=== PATIENT | female | born 1970 | race African-American/Black ===

== ENCOUNTER 2019-02-12 06:33 | Emergency (ER) | payer SELFPAY, BC | END 2019-02-12 10:30 | disposition home or self-care (01) | LOC: JER 06:33 ==

== ENCOUNTER 2020-04-24 13:26 | Emergency (ER) | payer SELFPAY ==
[2020-04-24 13:42] VITALS: BP 139/95; PULSE 97; TEMP 98.5; BMI 27.3
--- NOTE | 2020-04-24 14:40 | PDOC ---
History of Present Illness - General Chief Complaint: Palpitations Stated Complaint: PALPITATIONS Time Seen by Provider: 04/24/20 13:58 History Source: Patient Exam Limitations: No Limitations - History of Present Illness Initial Comments: 04/24/20 14:35 49-year-old female history of hypothyroid, uterine fibroids status post myomectomy 2012, renal stones, hypertension for which she does not take any medication given she rather take "home remedies ". Patient presents today co mplaining of intermittent palpitations x 7 days. Endorses abdominal distention since October 2019 with intermittent vaginal spotting, decreased appetite and minimal bilateral lower extremity swelling. LMP November 2018, denies history of . Was sexually active approximately 6 months ago. Denies chest pain, shortness of breath, back pain, nausea, vomiting, diarrhea, changes in stool color, recent travel, known sick contact or any other complaints. Patient was last seen at this ED on January 2019 for vaginal bleeding. At that time no acute ovarian pathology was found on ultrasound and patient was advised to follow-up with [facility] and a primary care doctor for elevated blood pressure. Due to lack of health insurance she has been unable to follow-up. However states as of next week she will have health insurance. Denies tobacco use, alcohol use or any other illicit substance abuse. ROS: as above PE: GENERAL: NAD, speaking full sentences HEAD: NCAT EYES: Pupils equal, round and reactive to light, sclera anicteric, conjunctiva clear ENT: pharynx: no erythema, no exudate, uvula midline NECK: supple, no lymphadenopathy CHEST: nontender RESP: clear, no w/r/r CARDIO: rrr, no m/g/r ABD: +BS, soft, nontender, mild distention noted BACK: no midline spinal ttp, no CVAT EXTREMITIES: Normal range of motion, no pitting edema, no calf tenderness to palpation NEUROLOGICAL: Normal speech, normal gait SKIN: Warm, Dry 04/24/20 14:40 Is this a multiple visit Asthma Patient?: No Past History - Medical History Allergies/Adverse Reactions: Allergies Allergy/AdvReac Type Severity Reaction Status Date / Time gluten Allergy Mild cramps Verified 04/24/20 13:42 Home Medications: Ambulatory Orders Iodine 25 gm PO ASDIR 02/12/19 Anemia: No Asthma: No Cancer: No Cardiac Disorders: Yes (heart murmur) CVA: No COPD: No CHF: No Dementia: No Diabetes: No GI Disorders: No Disorders: No HTN: No Hypercholesterolemia: No Liver Disease: No Seizures: No Thyroid Disease: Yes (hypothyroidism no meds) - Reproductive History Is Patient Now?: No Para: 0 Spontaneous : 0 - Psycho-Social/Smoking History Smoking History: Never smoked Have you smoked in the past 12 months: No Information on smoking cessation initiated: No - Substance Abuse Hx (Audit-C & DAST Scrn) How often the patient has a drink containing alcohol: Never Score: In Men: 4 or > Positive; In Women: 3 or > Positive: 0 Screen Result (Pos requires Nsg. Audit-10AR): Negative In the last yr the pt used illegal drug/Rx for NonMed reason: No Score: Yes response is considered Positive: 0 Screen Result (Positive result requires Nsg. DAST-10): Negative *Physical Exam - Vital Signs Last Vital Signs Temp Pulse Resp BP Pulse Ox 98.5 F 97 H 17 139/95 100 04/24/20 13:26 04/24/20 13:26 04/24/20 13:26 04/24/20 13:26 04/24/20 13:26 ED Treatment Course - LABORATORY CBC & Chemistry Diagram: 04/24/20 14:50 04/24/20 14:50 - RADIOLOGY Radiology Studies Ordered: Category Date Time Status ABDOMEN & PELVIS CT WITH CONTR [CT] Stat CT Scan 04/24/20 14:23 Ordered CHEST PA & LAT [RAD] Stat Radiology 04/24/20 14:22 Ordered Medical Decision Making - Medical Decision Making 04/24/20 14:42 49-year-old female history of hypothyroid, uterine fibroids status post myomectomy 2012, renal stones, hypertension for which she does not take any medication given she rather take "home remedies ". Patient presents today complaining of intermittent palpitations x 7 days. Endorses abdominal disten tion since October 2019 with intermittent vaginal spotting, decreased appetite and minimal bilateral lower extremity swelling. LMP November 2018, denies history of . Was sexually active approximately 6 months ago. Denies chest pain, shortness of breath, back pain, nausea, vomiting, diarrhea, changes in stool color, recent travel, known sick contact or any other complaints. Patient was last seen at this ED on January 2019 for vaginal bleeding. At that time no acute ovarian pathology was found on ultrasound and patient was advised to follow-up with [facility] and a primary care doctor for elevated blood pressure. Due to lack of health insurance she has been unable to follow-up. However states as of next week she will have health insurance. Denies tobacco use, alcohol use or any other illicit substance abuse. Labs including TSH and cardiac profile UA, urine culture Chest x-ray, EKG CTAP w/con Reassess 04/24/20 18:05 Reviewed labs including TSH, cardiac profile and UA test negative Chest x-ray unremarkable on my wet read CTAP w/con: Multiple uterine fibroids and bilateral ovarian cysts, no acute pathology Copy of CT results given to patient Advised patient to follow-up with PMD and E[facility] SUPER[facility] next week Discharge - Discharge Information Problems reviewed: Yes Clinical Impression/Diagnosis: Palpitations Condition: Stable Disposition: HOME - Admission No - Follow up/Referral Referrals: [facility] [Provider Group] - Patient Discharge Instructions - Post Discharge Activity
[2020-04-24 15:22] LABS: BASO % 0.6 % (0-2.0); HEMATOCRIT 40.8 % (32.4-45.2); HEMOGLOBIN 13.2 GM/dL (10.7-15.3); LYMPH % 17.2 % (8-40); MCH 28.7 pg (25.7-33.7); MCHC 32.3 g/dl (32.0-36.0); MEAN CELL VOLUME 88.8 fl (80-96); MEAN PLT VOLUME 9.3 fl (7.5-11.1); MONO % 6.2 % (3.8-10.2); PLATELET COUNT 254 K/MM3 (134-434); RDW 17.2 % (11.6-15.6); WHITE BLOOD COUNT 8.9 K/mm3 (4.0-10.0)
[2020-04-24 15:28] LABS: EPI CELLS 13 /uL (0-25.1); HYALINE CASTS 1 /uL (0-3.1); URINE APPEARANCE CLEAR; URINE BACTERIA 99 /uL (0-1359); URINE BILIRUBIN NEGATIVE (NEGATIVE); URINE COLOR YELLOW; URINE GLUCOSE (UA) NEGATIVE (NEGATIVE); URINE KETONE 3+ (NEGATIVE); URINE LEUK ESTERASE NEGATIVE (NEGATIVE); URINE NITRITE NEGATIVE (NEGATIVE); URINE PROTEIN TRACE (NEGATIVE); URINE RBC 3096 /uL (0-23.9); URINE WBC 11 /uL (0-25.8)
[2020-04-24 15:29] LABS: HCG,QUALITATIVE URINE Negative
[2020-04-24 15:32] LABS: ACTIVATED PTT 31.5 SECONDS (25.2-36.5)
[2020-04-24 15:34] LABS: INR 1.06 (0.83-1.09); PROTHROMBIN TIME (PATIENT) 12.5 SEC (9.7-13.0)
[2020-04-24 16:01] LABS: ALBUMIN 4.1 g/dl (3.4-5.0); ALK PHOS 53 U/L (45-117); ANION GAP 10 MMOL/L (8-16); BILIRUBIN,TOTAL 0.5 mg/dL (0.2-1); CALCIUM 9.8 mg/dL (8.5-10.1); CHLORIDE 104 mmol/L (98-107); CO2 25 mmol/L (21-32); GLUCOSE,RANDOM 77 mg/dL (74-106); LIPASE 200 U/L (73-393); POTASSIUM 3.7 mmol/L (3.5-5.1); SGOT/AST 20 U/L (15-37); SGPT/ALT 26 U/L (13-61); SODIUM 139 mmol/L (136-145); TOT PROT 7.7 g/dl (6.4-8.2)
--- NOTE | 2020-04-25 13:09 | EKG ---
Test Reason : Blood Pressure : / mmHG Vent. Rate : 100 BPM Atrial Rate : 100 BPM P-R Int : 140 ms QRS Dur : 070 ms QT Int : 346 ms P-R-T Axes : 075 041 039 degrees QTc Int : 446 ms SINUS RHYTHM WITH FREQUENT PREMATURE VENTRICULAR COMPLEXES POSSIBLE LEFT ATRIAL ENLARGEMENT CANNOT RULE OUT ANTERIOR INFARCT , AGE UNDETERMINED ABNORMAL ECG WHEN COMPARED WITH ECG OF 12-FEB-2019 09:00, PREMATURE VENTRICULAR COMPLEXES ARE NOW PRESENT VENT. RATE HAS INCREASED BY 33 BPM Confirmed by SANTA OLIVAREZ MD ([id number]) on 04/25/2020 1:09:50 PM Referred By: Confirmed By:SANTA OLIVAREZ MD
== END 2020-04-24 18:43 | disposition home or self-care (01) ==
LOC: JER 13:26
DX: R00.2 Palpitations (principal)
CPT/HCPCS: 36415; 71046-TC-FY; 74177-TC; 80053; 81003; 82140; 82550; 82553; 83690; 84443; 84484; 84703; 85025; 85610; 85730; 86850; 86900; 86901; 87086; 93005; 93010; 99285-25; Q9967

== ENCOUNTER 2020-05-03 19:39 | Emergency (ER) | payer SELFPAY ==
[2020-05-03 20:27] VITALS: BP 132/73; PULSE 97; TEMP 98; BMI 27.8
[2020-05-03 21:47] LABS: BASO % 0.4 % (0-2.0); HEMATOCRIT 35.2 % (32.4-45.2); HEMOGLOBIN 11.5 GM/dL (10.7-15.3); LYMPH % 19.1 % (8-40); MCH 29.4 pg (25.7-33.7); MCHC 32.7 g/dl (32.0-36.0); MEAN CELL VOLUME 89.8 fl (80-96); MEAN PLT VOLUME 8.6 fl (7.5-11.1); MONO % 7.2 % (3.8-10.2); NEUT % 72.3 % (42.8-82.8); PLATELET COUNT 286 K/MM3 (134-434); RBC 3.92 M/mm3 (3.60-5.2); RDW 16.9 % (11.6-15.6); WHITE BLOOD COUNT 9.7 K/mm3 (4.0-10.0)
--- NOTE | 2020-05-03 21:55 | PDOC ---
Documentation entered by Bryan Al SCRIBE, acting as scribe for Martin Ortega MD. Martin Ortega MD: This documentation has been prepared by the Servando hernandez Xhesika, SCRIBE, under my direction and personally reviewed by me in its entirety. I confirm that the documentation accurately reflects all work, treatment, procedures, and medical decision making performed by me. Attending Attestation - Resident Resident Name: Damian Shearer - ED Attending Attestation I have performed the following: I have examined & evaluated the patient, The case was reviewed & discussed with the resident, I agree w/resident's findings & plan, Exceptions are as noted - HPI HPI: 05/03/20 21:17 The patient is a 49 year old female with a significant PMH of who presents to the emergency department for several days of vaginal bleeding. Pt was seen here in the ED 04/24/20 for similar complaints, UA preg was negative, and CTAP showed multiple uterine fibroids and bilateral ovarian cysts. Pt states that she has had continued bleeding since. She has not seen her PMD or OB since her last ED visit. The patient denies chest pain, shortness of breath, headache and dizziness. Denies fever, chills, cough, nausea, vomiting, diarrhea and constipation. Denies dysuria, frequency, urgency. Allergies: NKDA. gluten - Physicial Exam PE: 05/03/20 21:56 See resident exam - Medical Decision Making 05/03/20 21:56 49 F with vaginal bleeding. Was seen here 1.5 weeks ago for same complaint, found to have fibroids, normal labs. Will recheck labs to r/o anemia. - Labs - F/u OB Pt is well appearing, with normal vitals. Clinically stable for DC at this time. I discussed the physical exam findings, ancillary test results and final diagnoses with the patient. I answered all of the patient's questions. The patient was satisfied with the care received and felt comfortable with the discharge plan and treatment plan. The patient agrees to follow up with the primary care physician within 24-72 hours. Discharge - Discharge Information Problems reviewed: Yes Clinical Impression/Diagnosis: Vaginal bleeding, abnormal, Fibroids, Menorrhagia Condition: Fair Disposition: HOME - Follow up/Referral Referrals: Milo Dubose MD [Staff Physician] - - Patient Discharge Instructions Patient Printed Discharge Instructions: DI for Vaginal Bleeding Additional Instructions: You came to the ED for vaginal bleeding. This is most likely due to your vaginal bleeding or ovarian cyst. At the ED we did labs which showed you were not and not anemic. Your Potassium was low so we gave you Potassium. Your workup is not complete without following up with OBGYN (who we referred you to) within the next two days. Please return if you have: - shortness of breath - chest pain - lightheadedness - Worsening vaginal bleeding Any emergent symptoms call for medical help right away. - Post Discharge Activity
[2020-05-03 22:29] LABS: ALBUMIN 3.9 g/dl (3.4-5.0); BILIRUBIN,TOTAL 0.5 mg/dL (0.2-1); BLOOD UREA NITROGEN 9.9 mg/dL (7-18); POTASSIUM 3.4 mmol/L (3.5-5.1)
[2020-05-03 22:31] LABS: CALCIUM 9.1 mg/dL (8.5-10.1)
[2020-05-03] MEDS ORDERED: POTASSIUM CHLORIDE TABS 10 MEQ TABLET.ER (FP) PO ONE (22:40)
[2020-05-03] MEDS ORDERED: POTASSIUM CHLORIDE TABS 20 MEQ TABLET.ER (FP) PO ONE (22:47)
--- NOTE | 2020-05-03 22:55 | PDOC ---
History of Present Illness - General Chief Complaint: Vaginal Bleeding Stated Complaint: VAGINAL/BLEEDING Time Seen by Provider: 05/03/20 20:53 - History of Present Illness Initial Comments: 05/04/20 12:13 49 yo female with pmh hypothyroidism, uterine fibroids, s/p myomectomy in 2002 presents to ED for vaginal bleeding for seven days. Pt was recently discharged from ED for similar problem 7 days ago where she was given a CT scan which showed uterine fibroids and ovarian cysts and urine which was negative. Pt today explains since discharge was bleeding clots through 2 or 3 pads a day. Pt explains she did not follow up with OBGYN. Pt believes she may be because her stomach has been growing for the past 6 months and legs were starting to get swollen. Pt today denies any chest pain, sob, lightheadedness, headache, blurry vision, abdominal pain, dysuria, or urinary frequency. PMH: Uterine fibroids, hypothyroidism Meds: iodine pills PSH: myomectomy 2002 Allergies: gluten sensitivity Social: denies drugs tobacco and alcohol Past History - Medical History Allergies/Adverse Reactions: Allergies Allergy/AdvReac Type Severity Reaction Status Date / Time gluten Allergy Mild cramps Verified 04/24/20 13:42 Home Medications: Ambulatory Orders Iodine 25 gm PO ASDIR 02/12/19 Anemia: No Asthma: No Cancer: No Cardiac Disorders: Yes (heart murmur) CVA: No COPD: No CHF: No Dementia: No Diabetes: No GI Disorders: No Disorders: No HTN: No Hypercholesterolemia: No Liver Disease: No Seizures: No Thyroid Disease: Yes (hypothyroidism no meds) - Reproductive History Is Patient Now?: Yes (states she is) Para: 0 Spontaneous : 0 - Psycho-Social/Smoking History Smoking History: Never smoked Have you smoked in the past 12 months: No - Substance Abuse Hx (Audit-C & DAST Scrn) How often the patient has a drink containing alcohol: Never Score: In Men: 4 or > Positive; In Women: 3 or > Positive: 0 Screen Result (Pos requires Nsg. Audit-10AR): Negative Review of Systems - Review of Systems Comments:: 05/04/20 12:49 GENERAL/CONSTITUTIONAL: No fever or chills. No weakness. HEAD, EYES, EARS, NOSE AND THROAT: No change in vision. No ear pain or discharge. No sore throat. CARDIOVASCULAR: No chest pain or shortness of breath RESPIRATORY: No cough, wheezing, or hemoptysis. GASTROINTESTINAL: No nausea, vomiting, diarrhea or constipation. GENITOURINARY: No dysuria, frequency, or change in urination. Blood coming from vaginal canal MUSCULOSKELETAL: No joint or muscle swelling or pain. No neck or back pain. SKIN: No rash NEUROLOGIC: No headache, vertigo, loss of consciousness, or change in strength/sensation. ENDOCRINE: Increased weight in last 6 months ALLERGIC/IMMUNOLOGIC: No hives or skin allergy. *Physical Exam - Vital Signs Last Vital Signs Temp Pulse Resp BP Pulse Ox 98 F 97 H 20 132/73 99 05/03/20 20:20 05/03/20 20:20 05/03/20 20:20 05/03/20 20:20 05/03/20 20:20 - Physical Exam 05/04/20 12:52 GENERAL: Awake, alert, and fully oriented, in no acute distress HEAD: No signs of trauma, normocephalic, atraumatic EYES: PERRLA, EOMI, sclera anicteric, conjunctiva clear ENT: Auricles normal inspection, hearing grossly normal, nares patent, krystin pharynx clear without exudates. Moist mucosa NECK: Normal ROM, supple, no lymphadenopathy, JVD, or masses LUNGS: No distress, speaks full sentences, clear to auscultation bilaterally HEART: Regular rate and rhythm, normal S1 and S2, no murmurs, rubs or gallops, peripheral pulses normal and equal bilaterally. ABDOMEN: Soft, nontender, normoactive bowel sounds. No guarding, no rebound. No masses EXTREMITIES : Normal inspection, Normal range of motion, +1 edema bilaterally NEUROLOGICAL: Cranial nerves II through XII grossly intact. Normal speech, normal gait, no focal sensorimotor deficits SKIN: Warm, Dry, normal turgor, no rashes or lesions noted ED Treatment Course - LABORATORY CBC & Chemistry Diagram: 05/03/20 21:34 05/03/20 21:34 - ADDITIONAL ORDERS Additional order review: Laboratory Results 05/03/20 05/03/20 21:34 21:34 Sodium 139 Potassium 3.4 L Chloride 105 Carbon Dioxide 28 Anion Gap 6 L BUN 9.9 Creatinine 1.0 Est GFR (CKD-EPI)AfAm 76.61 Est GFR (CKD-EPI)NonAf 66.10 Random Glucose 105 Calcium 9.1 Total Bilirubin 0.5 AST 18 ALT 21 Alkaline Phosphatase 55 Total Protein 7.0 Albumin 3.9 Serum , Qual Negative 05/03/20 21:34 RBC 3.92 MCV 89.8 MCHC 32.7 RDW 16.9 H MPV 8.6 Neutrophils % 72.3 Lymphocytes % 19.1 Monocytes % 7.2 Eosinophils % 1.0 Basophils % 0.4 - Medications Given in the ED: ED Medications Discontinued Medications Generic Name Dose Route Start Last Admin Trade Name Nikki PRN Reason Stop Dose Admin Potassium Chloride 40 meq 05/03/20 22:40 05/03/20 22:49 K-Dur - PO 05/03/20 22:41 40 meq ONCE ONE Administration Medical Decision Making - Medical Decision Making 05/03/20 22:52 49 yo female coming in with increased vaginal bleeding for 7 days. Pt was checked for Hgb, serum and electrolytes due to prior ct of fibroids and ovarian cyst. Pt hgb was WNL but lower than last week. Vitals were stable and repeat HR showed 75. Will give K because 3.4. Gave strict return precautions of SOB, chest pain, lightheadedness or increased vaginal bleeding. Told to follow up with OBGYN in the next few days. Discharge - Discharge Information Problems reviewed: Yes Clinical Impression/Diagnosis: Vaginal bleeding, abnormal Condition: Fair Disposition: HOME - Follow up/Referral Referrals: Milo Dubose MD [Staff Physician] - - Patient Discharge Instructions Patient Printed Discharge Instructions: DI for Vaginal Bleeding Additional Instructions: You came to the ED for vaginal bleeding. This is most likely due to your vaginal bleeding or ovarian cyst. At the ED we did labs which showed you were not and not anemic. Your Potassium was low so we gave you Potassium. Your workup is not complete without following up with OBGYN (who we referred you to) within the next two days. Please return if you have: - shortness of breath - chest pain - lightheadedness - Worsening vaginal bleeding Any emergent symptoms call for medical help right away. - Post Discharge Activity
== END 2020-05-03 23:49 | disposition home or self-care (01) ==
LOC: JER 19:39
DX: N93.9 Abnormal uterine and vaginal bleeding, unspecified (principal); D25.9 Leiomyoma of uterus, unspecified; N92.0 Excessive and frequent menstruation with regular cycle
CPT/HCPCS: 36415; 80053; 84703; 85025; 99284-25